=== PATIENT | female | born 1990 | race Caucasian/White ===

== ENCOUNTER 2017-11-24 01:29 | Emergency (ER) | payer OTHER ==
[~2017-11-24] VITALS: Ht 162.6 cm; Wt 117.9 kg
[~2017-11-24 01:29] MED LIST: SPR28 PO
[2017-11-24 01:35] VITALS: BP 145/88; PULSE 91; TEMP 36.9; O2SAT 97; Ht 162.6 cm; Wt 117.9 kg
[2017-11-24] MEDS ORDERED: SEPTRA DS HOME PACK 1 EA VIAL PO ONE (01:45)
[2017-11-24] MEDS ORDERED: NORCO 5/325MG HOME PACK PO ONE (01:45)
[2017-11-24] MEDS ORDERED: CEPHALEXIN 500MG HOME PACK 1 EA BTL PO ONE (01:45)
[2017-11-24] MEDS ORDERED: CEPH500C PO (01:50)
[2017-11-24] MEDS ORDERED: SULF800T23 PO (01:50)
--- NOTE | 2017-11-24 06:45 | EMERGENCY ROOM VISIT NOTE ---
History First contact with patient: 01:37 Chief Complaint: ABDOMINAL PAIN Stated Complaint: OPERATION ON THE , ABDOMINAL PAIN Nursing Triage Summary: pt had a couple masses removed from abd in october, pt c/o increased abd pain and incision is opening up History of Present Illness The patient is a 26 year old female who presents to the Emergency Room with complaints of some increasing pain and drainage from a surgical wound in her lower abdomen. The patient states that she has a lipoma removed at this facility roughly 12 days ago. The patient has been doing very well postoperatively. She has a follow-up appointment in 2 days with her surgeon regarding this. She noticed earlier today that she had some mild redness as well as some drainage from 1 of her wounds. The patient has not had fever or chills. She has been eating, drinking, and using the bathroom as normal. The patient is concerned about infection as she did have a previous abdominal surgery result in a periumbilical abscess. She rates her current discomfort a 2 /10. Review of Systems More than 10 systems were reviewed and otherwise negative with the exception of history of present illness. Past Medical/Surgical History Medical Problems: (1) section (2) Cholecystectomy (3) CHOLELITH W CHOLECYS NEC (4) Repair of umbilical hernia (5) Umbilical hernia Family History Cancer Heart disease Hypertension Social History Smoking Status: Current Every Day Smoker Alcohol Use: occasionally Drug Use: none Marital Status: Housing Status: lives alone Occupation Status: employed Current/Historical Medications Scheduled Cephalexin Monohydrate (Keflex), 500 MG PO TID Ethinyl Estrad/Norgestimate (Sprintec 28), 1 TAB PO QAM Sulfa/Trimethoprim (Bactrim Ds 800MG/160MG), 1 TAB PO BID Physical Exam Vital Signs Date Time Temp Pulse Resp B/P (MAP) Pulse Ox O2 Delivery O2 Flow Rate FiO2 18 01:35 36.9 91 18 145/88 97 Room Air Physical Exam VITALS: Vitals are noted on the nurse's note and reviewed by myself. Vital signs stable. GENERAL: Well-developed, well-nourished, white female, who is in no acute distress and resting comfortably. Patient is cooperative with the examination. HEAD: Normocephalic atraumatic. HEART: Regular rate and rhythm without murmurs gallops or rubs. LUNGS: Clear to auscultation bilaterally without wheezes, rales or rhonchi. No retractions or accessory muscle use. ABDOMEN: Positive normal bowel sounds x 4. Soft, nontender, without masses or organomegaly. There is a horizontal surgical incision underneath the pannus of the mid abdomen in the lower belly. This does have several intact sutures. The right side of the incision appears with marginal healing. The mid aspect of the incision may be folding in on itself, and I have concern for the underlying healing. The left side is with some mild warmth and a slight amount of erythema that may represent an early cellulitis. There is no palpable abscess or drainage that I am able to culture. Palpation of this area does cause tenderness to the patient. MUSCULOSKELETAL: No muscle atrophy, erythema, or edema noted. Full range of motion in all extremities. Medical Decision & Procedures Medications Administered Medications (Trade) Dose Ordered Sig/Myrtle Route Start Time Stop Time Status Last Admin Dose Admin Trimethoprim/ Sulfamethoxazole (Sulfameth/ Trimeth Ds 800/ 160MG Home Pack) 1 homepack UD ONCE PO 11/24/17 01:45 11/24/17 01:46 DC 11/24/17 01:45 1 HOMEPACK Cephalexin Monohydrate (Keflex 500MG Home Pack) 1 homepack NOW ONCE PO 11/24/17 01:45 11/24/17 01:46 DC 11/24/17 01:45 1 HOMEPACK Acetaminophen/ Hydrocodone Bitart ([place] 5/325mg Home Pack) 1 homepack UD ONCE PO 11/24/17 01:45 11/24/17 01:46 DC 11/24/17 01:45 1 HOMEPACK ED Course Physical exam and history were performed. Nursing notes, EMR, and Medication List were personally reviewed. Patient appears to have had a surgical procedure performed about 2 weeks at this facility. She has a horizontal surgical wound that is sutured probably. This is in various stages of healing, however I have concerned for a possible early cellulitis on the left side of the laceration. Patient does not appear toxic and I am not able to express any drainage or discharge. I discussed options of care with the patient, and utilizing shared decision making, we elected to start antibiotics. The patient will be started on Bactrim and Keflex , and will need to follow with her surgeon in 2 days as scheduled. The patient was asked to monitor for worsening or evolving symptoms. If this was to occur she was asked to return to the ER. The patient was pleased with this plan and voiced understanding. She rated her discomfort a 1/10 at the time of departure. The chart was completed utilizing [employer] Speech Voice Recognition Software. Grammatical errors, random word insertions, pronoun errors, and incomplete sentences are an occasional consequence of this system due to software limitations, ambient noise, and hardware issues. Any formal questions or concerns about the content, text, or information contained within the body of this dictation should be directly addressed to the provider for clarification. . Medical Decision Differential diagnosis: Etiologies such as cellulitis, abscess, MRSA infection, DVT, necrotizing fasciitis, dermatitis, drug eruption, as well as others were entertained.. Impression Primary Impression: Abdominal wall cellulitis Departure Information Dispostion Home / Self-Care Condition GOOD Prescriptions Cephalexin Monohydrate (Keflex) 500 Mg Cap 500 MG PO TID for 6 Days, #18 CAP Prov: Rafael Wolfe PA-C 11/24/17 Sulfa/Trimethoprim (Bactrim Ds 800MG/160MG) Tab 1 TAB PO BID for 6 Days, #12 TAB Prov: Rafael Wolfe PA-C 11/24/17 Forms HOME CARE DOCUMENTATION FORM, IMPORTANT VISIT INFORMATION Patient Instructions [facility] Additional Instructions You were seen and evaluated today on an emergency basis only. This is not a substitute for, or an effort to provide, complete comprehensive medical care. It is not possible to recognize and treat all injuries or illnesses in a single emergency department visit. For this reason it is recommended that you followup with your surgeon on Sunday as scheduled. Trimethoprim-Sulfamethoxazole(Bactrim DS): Take one pill twice daily for 7 total days for your skin infection. All antibiotics can cause diarrhea. If this occurs and you feel worse or it does not resolve in 1-2 days follow up with your doctor or return to the Emergency Department as this could be signs of serious underlying problems. Any medication can cause an allergic reaction, stop the pills immediately and return to the ER for rash, hives, breathing difficulties, or swelling. Cephalexin(Keflex) 500mg: Take one pill 3 times daily for 7 total days for your skin infection. All antibiotics can cause diarrhea. If this occurs and you feel worse or it does not resolve in 1-2 days follow up with your doctor or return to the Emergency Department as this could be signs of serious underlying problems. Any medication can cause an allergic reaction, stop the pills immediately and return to the ER for rash, hives, breathing difficulties, or swelling. [place] (hydrocodone/acetaminophen) 5/325 mg: Take ONE pill by mouth every 6 hours as needed for worsening breakthrough pain. Do not drink or drive on [place]. This medication will likely make you tired. Do not take [place] and Tylenol at the same time as both contain acetaminophen. [place] may cause constipation. You may wish to take an [id number] stool softener like Colace if this occurs. You are welcome to return to the emergency department anytime with new, worsening, or concerning symptoms.
== END 2017-11-24 02:02 | disposition home or self-care (01) ==
LOC: C.EDB 01:31 → C.EDA 02:02
DX: L03.311 Cellulitis of abdominal wall (principal); Z98.890 Other specified postprocedural states; Z90.49 Acquired absence of other specified parts of digestive tract; Z80.9 Family history of malignant neoplasm, unspecified; Z82.49 Family history of ischemic heart disease and other diseases of the circulatory system; F17.210 Nicotine dependence, cigarettes, uncomplicated; Z79.3 Long term (current) use of hormonal contraceptives

== ENCOUNTER 2017-11-30 21:13 | Observation (INO) | payer OTHER ==
[~2017-11-30] VITALS: Ht 162.6 cm; Wt 114.9 kg
[~2017-11-30 21:13] MED LIST changes: +CEPH500C PO; +SULF800T23 PO
[2017-11-30] MEDS ORDERED: CEFTRIAXONE SOD INJ 1 GM ADDVIAL IV STA (21:30)
[2017-11-30] MEDS ORDERED: SODIUM CHLORIDE 0.9% 1000ML 1,000 ML IV STA (21:33)
[2017-11-30] MEDS ORDERED: KETOROLAC TROMETHAMINE 30 MG/ML VIAL IV STA (21:47)
[2017-11-30 21:54] LABS: BASO % 0.3 %; BASO ABS # 0.04 K/uL (0-0.2); EOS ABS # 0.13 K/uL (0-0.5); HEMATOCRIT 39.4 % (37-47); HEMOGLOBIN 13.8 g/dL (12.0-16.0); IG# 0.02 K/uL (0.00-0.02); LYMPH % 28.5 %; LYMPH ABS # 3.69 K/uL (1.2-3.4); MEAN CORPUSCULAR HEMOGLOBIN 30.1 pg (25-34); MEAN PLATELET VOLUME 9.4 fL (7.4-10.4); MONO % 7.2 %; MONO ABS # 0.93 K/uL (0.11-0.59); NEUT % 62.8 %; NEUT ABS # 8.12 K/uL (1.4-6.5); PLATELET COUNT 246 K/uL (130-400); RED CELL DISTRIBUTION WIDTH CV 13.4 % (11.5-14.5); RED CELL DISTRIBUTION WIDTH SD 42.3 fL (36.4-46.3); WHITE BLOOD COUNT 12.93 K/uL (4.8-10.8)
[2017-11-30 22:10] LABS: CALCIUM 9.1 mg/dl (8.5-10.1); CREATININE 0.86 mg/dl (0.60-1.20); POTASSIUM 3.9 mmol/L (3.5-5.1)
--- NOTE | 2017-11-30 22:31 | DIAGNOSTIC IMAGING REPORT ---
LIMITED ABDOMINAL ULTRASOUND HISTORY: Lower abdominal swelling/redness, recent lipoma excision, ? infx. COMPARISON: CT of the abdomen and pelvis September 26, 2017. TECHNIQUE: Sonography of the lower anterior abdominal wall at surgical site was performed. FINDINGS: Note is made of a complex 8 x 5.3 x 6.9 cm collection within the deep subcutaneous tissues of the left lower abdominal wall, just to left of midline and just to the left of the surgical incision. This has a spongiform appearance. This contains no color flow. No additional fluid collections are identified. IMPRESSION: Complex 8 x 5.3 x 6.9 cm fluid collection within the deep subcutaneous tissues of the left lower abdominal wall, just to the left of midline and the incision. The appearance favors a resolving hematoma. However, an abscess could appear similar. Electronically signed by: Milton Zavala M.D. 11/30/2017 10:29 PM Dictated Date/Time: 11/30/2017 10:25 PM
[2017-11-30] MEDS ORDERED: OPTIRAY 320 IV PRN (22:45)
[2017-12-01] VITALS (7 sets, daily range): BP systolic 109–129; BP diastolic 72–83; PULSE 59–75; TEMP 36.6–36.8; O2SAT 93–98; Ht 162.6 cm; Wt 114.9 kg
[2017-12-01] MEDS ORDERED: LIDOCAINE HCL 1% 20 ML VIAL ONE (00:43)
[2017-12-01] MEDS ORDERED: BUPIVACAINE 0.5 % 5 MG/1 ML PF 10ML VIAL ONE (00:43)
--- NOTE | 2017-12-01 00:48 | EMERGENCY ROOM VISIT NOTE ---
History First contact with patient: 21:22 Chief Complaint: ABDOMINAL PAIN Stated Complaint: MASS ON INCISION SITE, POST OP 11/12 Nursing Triage Summary: PT had nodules removed from abd on November 12. PT has open incision to pubic area, draining clear/pink fluid. PT has surgical incision to LLQ of abd, healing well , but PT has hard bumps noted to palpation. area is swollen also. PT has no fever/chills, does have pain states "I noticed this am there were bumps and it has been swelling up all day long" History of Present Illness The patient is a 26 year old female who presents to the Emergency Room with complaints of pain and swelling to the lower abdomen after having a mass removed a few weeks ago by Dr. Mcginnis. She describes the pain as burning, ranging in severity 2 out of 10 to the lower abdomen. It does not radiate. Nothing makes it better or worse. She is currently on antibiotics of Keflex and Bactrim. Patient was seen postop a few days ago by Dr. Mcginnis and everything was going well. She states the pain and swelling that started yesterday. She states is slightly red and tender. Patient denies fevers, nausea, vomiting, diarrhea, back pain, urinary symptoms, flulike illness. Review of Systems An 10 system review of systems was completed with positives and pertinent negatives listed in the HPI. Past Medical/Surgical History Medical Problems: (1) section (2) Cholecystectomy (3) CHOLELITH W CHOLECYS NEC (4) Repair of umbilical hernia (5) Umbilical hernia Family History Cancer Heart disease Hypertension Social History Smoking Status: Never Smoker Alcohol Use: occasionally Drug Use: none Marital Status: Housing Status: lives alone Occupation Status: employed Current/Historical Medications Scheduled Ethinyl Estrad/Norgestimate (Sprintec 28), 1 TAB PO QAM Physical Exam Vital Signs Date Time Temp Pulse Resp B/P (MAP) Pulse Ox O2 Delivery O2 Flow Rate FiO2 11/30/17 22:11 94 18 137/88 98 Room Air 11/30/17 21:16 36.9 110 20 167/132 96 Room Air Physical Exam VITALS: Vitals are noted on the nurse's note and reviewed by myself. Vital signs hypertensive. GENERAL: Pleasant female, in no acute distress, nondiaphoretic, well-developed well-nourished. SKIN: Left lower abdominal region slightly erythematous with palpable mass 8 x 6 cm that is tender to palpation and slightly warm. The rest of the skin was without rashes, erythema, edema, or bruising. There is no tenting of the skin. Capillary reflex less than 2 seconds. HEAD: Normocephalic atraumatic. EARS: External auditory canals clear, tympanic membranes pearly kendrick without erythema or effusion bilaterally. EYES: Pupils equal round and reactive to light and accommodation. Conjunctivae without injection, sclerae without icterus. Extraocular movements intact. NOSE: Patent, turbinates without inflammation or discharge. MOUTH: Mucous membranes moist. Pharynx without erythema or exudate. Uvula midline. Airway patent. Tongue does not deviate. NECK: Supple without nuchal rigidity. No lymphadenopathy. No thyromegaly. Cervical spine is nontender. No JVD. HEART: Regular rate and rhythm without murmurs gallops or rubs. LUNGS: Clear to auscultation bilaterally without wheezes, rales or rhonchi. No retractions or accessory muscle use. ABDOMEN: Positive bowel sounds x 4. Normal tympanic percussion. Soft, Left lower abdominal region slightly erythematous with palpable mass 8 x 6 cm that is tender to palpation and slightly warm, lower pannus region with 3 cm x 2 cm healing wound without surrounding erythema or drainage. The abdomen is without organomegaly. Sewell sign negative. No guarding or rebound tenderness. No CVA tenderness MUSCULOSKELETAL: No muscle atrophy, erythema, or edema noted. NEURO: Patient was alert and oriented to person place and time. Normal sensation to light and sharp touch. No focal neurological deficits. Medical Decision & Procedures Laboratory Results 11/30/17 21:40 Red Blood Count 4.58, Mean Corpuscular Volume 86.0, Mean Corpuscular Hemoglobin 30.1, Mean Corpuscular Hemoglobin Concent 35.0, Mean Platelet Volume 9.4, Neutrophils (%) (Auto) 62.8, Lymphocytes (%) (Auto) 28.5, Monocytes (%) (Auto) 7.2, Eosinophils (%) (Auto) 1.0, Basophils (%) (Auto) 0.3, Neutrophils # (Auto) 8.12, Lymphocytes # (Auto) 3.69, Monocytes # (Auto) 0.93, Eosinophils # (Auto) 0.13, Basophils # (Auto) 0.04 11/30/17 21:40 Test 11/30/17 21:40 White Blood Count 12.93 K/uL (4.8-10.8) Red Blood Count 4.58 M/uL (4.2-5.4) Hemoglobin 13.8 g/dL (12.0-16.0) Hematocrit 39.4 % (37-47) Mean Corpuscular Volume 86.0 fL (80-100) Mean Corpuscular Hemoglobin 30.1 pg (25-34) Mean Corpuscular Hemoglobin Concent 35.0 g/dl (32-36) Platelet Count 246 K/uL (130-400) Mean Platelet Volume 9.4 fL (7.4-10.4) Neutrophils (%) (Auto) 62.8 % Lymphocytes (%) (Auto) 28.5 % Monocytes (%) (Auto) 7.2 % Eosinophils (%) (Auto) 1.0 % Basophils (%) (Auto) 0.3 % Neutrophils # (Auto) 8.12 K/uL (1.4-6.5) Lymphocytes # (Auto) 3.69 K/uL (1.2-3.4) Monocytes # (Auto) 0.93 K/uL (0.11-0.59) Eosinophils # (Auto) 0.13 K/uL (0-0.5) Basophils # (Auto) 0.04 K/uL (0-0.2) RDW Standard Deviation 42.3 fL (36.4-46.3) RDW Coefficient of Variation 13.4 % (11.5-14.5) Immature Granulocyte % (Auto) 0.2 % Immature Granulocyte # (Auto) 0.02 K/uL (0.00-0.02) Anion Gap 8.0 mmol/L (3-11) Est Creatinine Clear Calc Drug Dose 123.1 ml/min Estimated GFR () 106.6 Estimated GFR (Non- 91.9 BUN/Creatinine Ratio 20.3 (10-20) Calcium Level 9.1 mg/dl (8.5-10.1) Human Chorionic Gonadotropin, Qual NEG (NEG) Medications Administered Medications (Trade) Dose Ordered Sig/Myrtle Route Start Time Stop Time Status Last Admin Dose Admin Ceftriaxone Sodium (Rocephin Inj) 1 gm NOW STAT IV 11/30/17 21:30 11/30/17 21:32 DC 11/30/17 21:52 1 GM Sodium Chloride 1,000 ml @ 999 mls/hr Q1H1M STAT IV 11/30/17 21:33 11/30/17 22:33 DC 11/30/17 21:52 999 MLS/HR Ketorolac Tromethamine (Toradol Inj) 10 mg NOW STAT IV 11/30/17 21:47 11/30/17 21:48 DC 11/30/17 22:11 10 MG ED Course Prior records/ancillary studies reviewed. Triage Nursing notes reviewed. Additional history obtained from family The patient's history was concerning for abdominal pain and mass status post surgery. Differential diagnosis: Etiologies such as seroma, postsurgical infection, abscess, appendicitis, diverticulitis, PUD, biliary pathology, UTI, pancreatitis, obstruction, mesenteric ischemia, aortic pathology, infections, inflammatory bowel disease, renal colic, as well as others were entertained. Physical examination findings: As above. ER treatment provided: Rocephin, IV fluids, Toradol On reassessment the patient felt better. Diagnostics interpreted by me: The labs revealed leukocytosis. Negative hCG. Negative urine Imaging studies: LIMITED ABDOMINAL ULTRASOUND HISTORY: Lower abdominal swelling/redness, recent lipoma excision, ? infx. COMPARISON: CT of the abdomen and pelvis September 26, 2017. TECHNIQUE: Sonography of the lower anterior abdominal wall at surgical site was performed. FINDINGS: Note is made of a complex 8 x 5.3 x 6.9 cm collection within the deep subcutaneous tissues of the left lower abdominal wall, just to left of midline and just to the left of the surgical incision. This has a spongiform appearance. This contains no color flow. No additional fluid collections are identified. IMPRESSION: Complex 8 x 5.3 x 6.9 cm fluid collection within the deep subcutaneous tissues of the left lower abdominal wall, just to the left of midline and the incision. The appearance favors a resolving hematoma. However, an abscess could appear similar. Electronically signed by: Milton Zavala M.D. CT ABDOMEN & PELVIS With Contrast: Comparison 09/26/17 Findings: 8 cm x 8.6 cm soft tissue collection in the anterior wall of the abdomen below the umbilicus. This is predominantly fluid density. Skin thickening noted overlying the surface. No gas is noted within the soft tissues. This may represent a seroma. This postural of the abscess collection cannot be excluded although no gas is demonstrated. Stable appearance to bilateral renal cysts. No change in appearance of the liver spleen. Stable appearance to small nodule in the left rectus sheath. The appendix is unremarkable as is the rest of the GI tract. Impression: subcutaneous collection midline lower abdominal wall 8 cm in size.. There is some skin thickening. This may represent a seroma. Potential for abscess collection is not excluded. No gas noted within the soft tissues. Radiologist: Vasquez Nava MD Consultation: A consultation was placed with The surgeon, Dr. Mcginnis and reviewed the ultrasound results and request CT. This was ordered a reconsulted Dr. Mcginnis. The case was discussed and diagnostics were reviewed. The patient was evaluated in the ER for further treatment. He will take the patient to the OR for further evaluation and treatment. Please see his note. Exam and history seem consistent with abdominal fluid collection of seroma versus abscess. Patient will be taken to the OR. She was given antibiotics. She does have a leukocytosis. She felt much better to being medicated as above. She will be admitted to the surgical service. Patient is agreeable to treatment plan. By the evaluation outlined above emergent etiologies such as appendicitis, diverticulitis, PUD, biliary pathology, UTI, pancreatitis, obstruction, mesenteric ischemia, aortic pathology, inflammatory bowel disease, renal colic, as well as others were deemed relatively unlikely. The pt informed about the findings as listed above. All questions were answered and pleased with the treatment. Case reviewed with my attending The chart was completed utilizing [employer] Speech voice recognition software. Grammatical errors, random word insertions, pronoun errors, and incomplete sentences are an occassional consequence of this system due to software limitations, ambient noise, and hardware issues. Any formal questions or concerns about the content, text, or information contained within the body of this dictation should be directly addressed to the physician mail handler assistant for clarification. Medical Decision As above Medication Reconcilliation Current Medication List: was personally reviewed by me Blood Pressure Screening Patient's blood pressure: Normal blood pressure Impression Primary Impression: Abdominal wall mass Additional Impression: Postoperative complication Departure Information Dispostion Being Evaluated By Surgeon Condition GOOD Referrals Alex Viera M.D. (PCP) Patient Instructions [facility] Problem Qualifiers
--- NOTE | 2017-12-01 01:01 | Surgery Consultation ---
Consultation Date of Consultation: Dec 01, 2017. 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 Past Medical/Surgical History Medical Problems: (1) Abdominal cyst Status: Acute (2) Abdominal pain Status: Acute (3) Abdominal wall cellulitis Status: Acute (4) Laceration of lower extremity Status: Acute (5) Periumbilical abdominal pain Status: Acute Family History Cancer Heart disease Hypertension Social History Smoking Status: Never Smoker Smokeless Tobacco Use: No Alcohol Use: occasionally Drug Use: none Marital Status: Housing Status: lives alone Occupation Status: employed Allergies Coded Allergies: No Known Allergies (Verified , 11/30/17) Home Medications Scheduled Ethinyl Estrad/Norgestimate (Sprintec 28), 1 TAB PO QAM Current Inpatient Medications Current Inpatient Medications Medications (Trade) Dose Ordered Sig/Myrtle Route Start Time Stop Time Status Last Admin Dose Admin Ioversol (Optiray 320) 100 ml UD PRN IV 11/30/17 22:45 12/04/17 22:44 Review of Systems Constitutional: No fever, No chills, No sweats, No weight loss, No weakness, No fatigue, No problem reported Eyes: No worsening of vision, No eye pain, No redness, No discharge, No diplopia, No problem reported ENT: No hearing loss, No unusual epistaxis, No nasal symptoms, No sore throat, No tinnitus, No dental problems, No trouble swallowing, No problem reported Respiratory: No cough, No sputum, No wheezing, No shortness of breath, No dyspnea on exertion, No dyspnea at rest, No hemoptysis, No problem reported Cardiovascular: No chest pain, No orthopnea, No PND, No edema, No claudication , No palpitations, No problem reported Abdomen: + pain Musculoskeletal: No joint pain, No muscle pain, No swelling, No calf pain, No problem reported Genitourinary - Female: No dysuria, No urinary frequency, No urinary urgency, No urinary incontinence, No urinary retention, No hematuria, No dysmenorrhea, No menorrhagia, No metrorrhagia, No rash, No vaginal bleeding, No vaginal discharge, No vaginal itching, No vulvodynia, No , No problem reported Neurologic: No memory loss, No paralysis, No weakness, No numbness/tingling, No vertigo, No balance problems, No problem reported Psychiatric: No depression symptoms, No anhedonism, No anxiety, No insomnia, No substance abuse, No problem reported Endocrine: No fatigue, No excessive thirst, No excessive urination, No problem reported Hematologic / Lymphatic: No abnormal bleeding/bruising, No clotting problems, No swollen lymph nodes, No night sweats, No problem reported Physical Exam Date Time Temp Pulse Resp B/P (MAP) Pulse Ox O2 Delivery O2 Flow Rate FiO2 12/01/17 00:18 82 18 130/67 98 Room Air 11/30/17 22:11 94 18 137/88 98 Room Air 11/30/17 21:16 36.9 110 20 167/132 96 Room Air General Appearance: WD/WN, no apparent distress Head: normocephalic Eyes: normal inspection ENT: normal ENT inspection Neck: supple, no JVD Cardiovascular: regular rate, rhythm, no edema, no gallop, no JVD Abdomen/GI: normal bowel sounds, soft, no organomegaly, no pulsatile mass, + tenderness (at anterior abdominal wall on incision site, some redness around incision site, with bulging, no drainage, ) Extremities/Musculoskelatal: normal inspection, no calf tenderness, normal capillary refill Neurologic/Psych: alert, normal mood/affect, oriented x 3 Skin: normal color, warm/dry, no rash Laboratory Results Last 24 Hours Test 11/30/17 21:40 White Blood Count 12.93 K/uL Red Blood Count 4.58 M/uL Hemoglobin 13.8 g/dL Hematocrit 39.4 % Mean Corpuscular Volume 86.0 fL Mean Corpuscular Hemoglobin 30.1 pg Mean Corpuscular Hemoglobin Concent 35.0 g/dl Platelet Count 246 K/uL Mean Platelet Volume 9.4 fL Neutrophils (%) (Auto) 62.8 % Lymphocytes (%) (Auto) 28.5 % Monocytes (%) (Auto) 7.2 % Eosinophils (%) (Auto) 1.0 % Basophils (%) (Auto) 0.3 % Neutrophils # (Auto) 8.12 K/uL Lymphocytes # (Auto) 3.69 K/uL Monocytes # (Auto) 0.93 K/uL Eosinophils # (Auto) 0.13 K/uL Basophils # (Auto) 0.04 K/uL RDW Standard Deviation 42.3 fL RDW Coefficient of Variation 13.4 % Immature Granulocyte % (Auto) 0.2 % Immature Granulocyte # (Auto) 0.02 K/uL Sodium Level 137 mmol/L Potassium Level 3.9 mmol/L Chloride Level 108 mmol/L Carbon Dioxide Level 21 mmol/L Anion Gap 8.0 mmol/L Blood Urea Nitrogen 18 mg/dl Creatinine 0.86 mg/dl Est Creatinine Clear Calc Drug Dose 123.1 ml/min Estimated GFR () 106.6 Estimated GFR (Non- 91.9 BUN/Creatinine Ratio 20.3 Random Glucose 83 mg/dl Calcium Level 9.1 mg/dl Human Chorionic Gonadotropin, Qual NEG Assessment & Plan U/S study(11/30/2017)-FINDINGS: Note is made of a complex 8 x 5.3 x 6.9 cm collection within the deep subcutaneous tissues of the left lower abdominal wall, just to left of midline and just to the left of the surgical incision. This has a spongiform appearance. This contains no color flow. No additional fluid collections are identified. IMPRESSION: Complex 8 x 5.3 x 6.9 cm fluid collection within the deep subcutaneous tissues of the left lower abdominal wall, just to the left of midline and the incision. The appearance favors a resolving hematoma. However, an abscess could appear similar. CT scan( 11/30/2017)- fluid collection on anterior abdominal wall, possible seroma/abscess, Assessment: pt is a 26 year old female who is a S/P resection a mass on anterior abdominal wall 2.5 weeks ago, now pt presents to Er with abdominal pain with incision bulging, IMP: abdominal wall seroma /abscess, base on pt is symptomatic and WBC high 12.9, I recommend to do I/D seroma / abscess on anterior abdominal wall, or watching, but pt wants to I/D surgery, D/ W benefits, risks and alternatives of the surgery, the risks - infection, bleeding, sepsis, pt understood, she agrees with the surgery, I answered all questions,
--- NOTE | 2017-12-01 01:02 | History & Physical Bridge Note ---
H&P Re-Evaluation Bridge Note: I have examined the patient, reviewed the History & Physical and in the interval since the performance of the History & Physical I have noted the following changes of clinical significance: No changes noted
[2017-12-01] MEDS ORDERED: FENTANYL CITRATE INJ 50 MCG/1 ML 2 ML VIAL IV PRN (01:15)
[2017-12-01] MEDS ORDERED: EpHEDrine SULFATE INJ 50 MG/ML AMP IV PRN (01:15)
[2017-12-01] MEDS ORDERED: ACETAMINOPHEN 325 MG TAB PO PRN (01:15)
[2017-12-01] MEDS ORDERED: ATROPINE SULFATE 0.1 MG/ML 5ML SYR IV PRN (01:15)
[2017-12-01] MEDS ORDERED: LABETALOL HCL IV 5 MG/ML 20ML IV PRN (01:15)
[2017-12-01] MEDS ORDERED: MEPERIDINE HCL 25 MG/ML CARP IV PRN (01:15)
[2017-12-01] MEDS ORDERED: ONDANSETRON INJ 2 MG/ML 2 ML VIAL IV PRN ×2 (01:15)
[2017-12-01] MEDS ORDERED: HYDROmorphone INJ 1 MG/ML SYR IV PRN ×2 (01:15)
[2017-12-01] MEDS ORDERED: FENTANYL CITRATE INJ 50 MCG/1 ML 2 ML VIAL ONE (01:21)
[2017-12-01] MEDS ORDERED: MIDAZOLAM HCL 1 MG/ML 2ML VIAL ONE (01:21)
[2017-12-01] MEDS ORDERED: CEFAZOLIN SOD 2000MG/15 ML IV PUSH IV STA (01:25)
[2017-12-01] MEDS ORDERED: BACITRACIN OINT 15 GM TUBE ONE (01:36)
--- NOTE | 2017-12-01 01:45 | [facility] Post Operative Brief Note ---
Immediate Operative Summary Operative Date Dec 01, 2017. Pre-Operative Diagnosis Abdomenal Wall seroma/abscess Post-Operative Diagnosis Abdomenal Wall seroma Procedure(s) Performed Incision and Drainage of Abdominal Wall seroma Surgeon Dr Mcginnis Donor Services Specialist Surgeon(s) None Estimated Blood Loss 5cc Findings Consistent with Post-Op Diagnosis seroma Fluids (cc crystalloids) 400ml Specimens 1: Abdominal Wall Fluid Collection Drains packing the wound Anesthesia Type MAC Complication(s) none Disposition Accompanied Pt To Recover: yes Disposition: Recovery Room / PACU
[2017-12-01] MEDS ORDERED: LIDOCAINE HCL 2% 2 ML VIAL (20MG/ML) ONE (01:48)
[2017-12-01] MEDS ORDERED: PROPOFOL IV EMULSION 10 MG/ML 20 ML VIAL ONE (01:48)
[2017-12-01] MEDS ORDERED: CEFAZOLIN SOD 1 GM VIAL ONE (01:48)
[2017-12-01] MEDS ORDERED: D5W AND 1/2NSS + 20MEQ KCL 1,000 ML IV SCH (02:45)
[2017-12-01] MEDS: OXYCODONE/ACETAMINOPHEN 5-325 TAB PO PRN ×2 (02:49→08:10)
[2017-12-01] MEDS ORDERED: PIPERACILL/TAZOBAC IV 4.5 GM in D5W 100 ML IV ONE (03:00)
[2017-12-01 03:11] LABS: BASO % 0.2 %; BASO ABS # 0.02 K/uL (0-0.2); EOS % 1.2 %; EOS ABS # 0.15 K/uL (0-0.5); HEMATOCRIT 38.6 % (37-47); IG# 0.03 K/uL (0.00-0.02); LYMPH % 33.3 %; LYMPH ABS # 4.14 K/uL (1.2-3.4); MEAN CELL VOLUME 86.2 fL (80-100); MEAN CORPUSCULAR HGB CONC 33.7 g/dl (32-36); MEAN PLATELET VOLUME 9.3 fL (7.4-10.4); MONO % 6.2 %; MONO ABS # 0.77 K/uL (0.11-0.59); NEUT % 58.9 %; NEUT ABS # 7.31 K/uL (1.4-6.5); PLATELET COUNT 215 K/uL (130-400); RED CELL DISTRIBUTION WIDTH CV 13.4 % (11.5-14.5); RED CELL DISTRIBUTION WIDTH SD 42.2 fL (36.4-46.3); WHITE BLOOD COUNT 12.42 K/uL (4.8-10.8)
[2017-12-01] MEDS ORDERED: IV FLUIDS COMPLETED PRN (03:30)
--- NOTE | 2017-12-01 05:46 | OPERATIVE REPORT ---
DATE OF OPERATION: 12/01/2017 PREOPERATIVE DIAGNOSIS: Abdominal wall seroma or abscess. POSTOPERATIVE DIAGNOSIS: Abdominal wall seroma. PROCEDURE: I&D of abdominal wall seroma. SURGEON: Arcadio Mcginnis MD ANESTHESIA: Conscious sedation plus local. ESTIMATED BLOOD LOSS: About 5 mL. FINDINGS: Abdominal wall seroma. Wound culture sent. COMPLICATIONS: None. INDICATIONS FOR THE PROCEDURE: This as a 26-year-old female who presented to the ED with 2-day history of abdominal wall pain and patient had resection of abdominal wall mass about 2-1/2 weeks ago and now patient had ultrasound and CT scan diagnosis of abdominal wall seroma or abscess. We decided to take the patient to the OR, do I&D of abdominal wall seroma or abscess. I did talk to the patient about the benefits, risks, and alternate procedures. I indicated the risks may include but not limited such as bleeding, infection, chronic wound, scar, sepsis. The patient understood. She signed informed consent and she agreed to proceed with the procedure. I answered all questions. DETAILS OF PROCEDURE: We brought the patient to the OR, put the patient in the supine position. The patient received SCD on bilateral legs to prevent DVT. Also, the patient received 2 grams Ancef IV for prophylactic antibiotic. The patient received conscious sedation by anesthesiology. The abdomen was prepped and draped in routine sterile fashion. After time-out, I injected 1% lidocaine mixed with 0.5% Marcaine around the low incision site below umbilical. I then made about a 1.5 cm incision and on dissection of subcutaneous layer, there was clear fluid that came out. We did send wound culture. Then we suctioned and all fluid came out and we packed with 0.5-inch Kerlix with bacitracin. Hemostasis was obtained. Then we put the dressing on. The patient tolerated the procedure well. All the instrument, needle, and sponge count were correct x2 at the end of case. Patient transferred to recovery room in stable condition. Wound culture sent. I attest to the content of the Intraoperative Record and any orders documented therein. Any exceptions are noted below. MTDD
[2017-12-01] MEDS ORDERED: PIPERACILL/TAZOBAC IV 3.375 GM in DEXTROSE 5% 100ML 100 ML IV SCH (06:00)
--- NOTE | 2017-12-01 07:13 | DIAGNOSTIC IMAGING REPORT ---
CT SCAN OF THE ABDOMEN AND PELVIS WITH IV CONTRAST CLINICAL HISTORY: Lower abdominal pain and swelling. COMPARISON STUDY: Abdominal CT scans dated 09/26/2017 and 07/25/2012. TECHNIQUE: Following the IV administration of 113 cc of Optiray 320, CT scan of the abdomen and pelvis is performed from the lung bases to the proximal femora. Images are reviewed in the axial, sagittal, and coronal planes. IV contrast was administered without complication. A dose lowering technique was utilized adhering to the principles of ALARA. CT DOSE: 1370.69 mGy.cm FINDINGS: Lung bases: The heart is normal in size and without pericardial effusion. The lung bases are clear. Liver: The contrast-enhanced liver is enlarged, measuring 19.8 cm in length. The liver is otherwise normal in contour and attenuation. There is mild central intrahepatic biliary ductal dilatation. The hepatic veins and portal veins are patent. Gallbladder: Surgically absent noting clips in the gallbladder fossa. Spleen: Normal in size and attenuation. Pancreas: Unremarkable. Adrenal glands: Unremarkable. Kidneys: The contrast enhanced kidneys are normal in size and without hydronephrosis. The kidneys enhance symmetrically. A 1.9 cm cyst is seen in the right lower pole. Findings suggest medullary nephrocalcinosis. Numerous tiny renal calculi are noted. Abdominal vasculature: The abdominal aorta is normal in course and caliber. Bowel: The small bowel and colon are normal in course and caliber. The appendix is well-visualized and normal. Peritoneum: There is no intraperitoneal free air or abdominal ascites. There is the midline surgical scar with evidence of previous umbilical hernia repair. No residual hernia is identified. There is an approximately 8 x 7.5 x 8 cm fluid collection identified within the ventral abdominal pannus below the umbilicus. This is best seen on image #305 and measures water density. This demonstrates thin peripheral enhancement and there is mild overlying dermal thickening. No gas is present within the collection. A 1.8 cm slightly hyperdense nodule is again seen within the left rectus muscle on image #266. Lymphadenopathy: None. Pelvic viscera: The bladder, uterus, and adnexa are normal as visualized. There are numerous small ovarian follicles. Skeletal structures: No lytic or blastic lesions are seen. IMPRESSION: 1. There is an approximately 8 x 7.5 x 8 cm fluid collection identified within the midline infraumbilical abdominal pannus. This is nonspecific, and differential considerations include a seroma, a liquefied hematoma, or possibly abscess. Clinical correlation will be essential. 2. There is unchanged appearance of a 1.8 cm enhancing nodule within the infraumbilical left rectus muscle as compared to previous. Top differential considerations remain a small endometrioma within the abdominal wall or less likely desmoid tumor. 3. Hepatomegaly. 4. Findings suggest medullary nephrocalcinosis. Tiny renal calculi are again noted. 5. Additional findings as above. Electronically signed by: Lam Villalobos M.D. 12/01/2017 7:12 AM Dictated Date/Time: 12/01/2017 7:02 AM
[2017-12-01] MEDS ORDERED: PIPERACILL/TAZOBAC IV 4.5 GM in D5W 100 ML IV SCH (08:00)
--- NOTE | 2017-12-01 08:03 | Anesthesiology Progress Note ---
Anesthesia Post Op Note Date & Time Dec 01, 2017 at 08:03 Vital Signs Pain Intensity: 5.0 Vital Signs Past 12 Hours Date Time Temp Pulse Resp B/P (MAP) Pulse Ox O2 Delivery O2 Flow Rate FiO2 12/01/17 07:08 36.7 65 18 109/77 (88) 93 Room Air 12/01/17 05:25 36.7 59 16 115/75 (88) 98 Room Air 12/01/17 04:25 36.7 75 16 112/75 (87) 96 Room Air 12/01/17 03:25 36.8 74 16 116/72 (87) 98 Room Air 12/01/17 02:54 36.7 62 16 129/76 (93) 97 Room Air 12/01/17 02:25 Room Air 12/01/17 02:25 36.6 16 127/83 98 Room Air 12/01/17 02:25 98 Room Air 12/01/17 02:10 36.5 71 16 126/79 95 Room Air 12/01/17 02:00 72 16 113/71 93 Room Air 12/01/17 01:50 36.2 78 16 114/77 95 Room Air 12/01/17 00:18 82 18 130/67 98 Room Air 11/30/17 22:11 94 18 137/88 98 Room Air 11/30/17 21:16 36.9 110 20 167/132 96 Room Air Notes Mental Status: alert / awake / arousable, participated in evaluation Pt Amnestic to Procedure: Yes Nausea / Vomiting: adequately controlled Pain: adequately controlled Airway Patency, RR, SpO2: stable & adequate BP & HR: stable & adequate Hydration State: stable & adequate Anesthetic Complications: no major complications apparent
--- NOTE | 2017-12-01 09:25 | Surgery Progress Note ---
Surgery Progress Note Date of Service Dec 01, 2017. Subjective Post OP Day: 1 + feeling well pt is doing fine, no fever, less abdominal pain, she tolerated diet, wound culture is pending, Objective Vital Signs: Date Time Temp Pulse Resp B/P (MAP) Pulse Ox O2 Delivery O2 Flow Rate FiO2 12/01/17 08:00 Room Air 12/01/17 07:08 36.7 65 18 109/77 (88) 93 Room Air 12/01/17 05:25 36.7 59 16 115/75 (88) 98 Room Air 12/01/17 04:25 36.7 75 16 112/75 (87) 96 Room Air 12/01/17 03:25 36.8 74 16 116/72 (87) 98 Room Air 12/01/17 02:54 36.7 62 16 129/76 (93) 97 Room Air 12/01/17 02:25 Room Air 12/01/17 02:25 36.6 16 127/83 98 Room Air 12/01/17 02:25 98 Room Air 12/01/17 02:10 36.5 71 16 126/79 95 Room Air 12/01/17 02:00 72 16 113/71 93 Room Air 12/01/17 01:50 36.2 78 16 114/77 95 Room Air 12/01/17 00:18 82 18 130/67 98 Room Air 11/30/17 22:11 94 18 137/88 98 Room Air 11/30/17 21:16 36.9 110 20 167/132 96 Room Air General Appearance: WD/WN, no apparent distress Head: normocephalic Neck: no JVD Respiratory/Chest: chest non-tender, lungs clear Cardiovascular: regular rate, rhythm, no edema, no gallop Abdomen: normal bowel sounds, non tender, non distended, soft Incision(s): clean, dry, intact (packing is intact, the dressing is changed, ) Extremities: normal range of motion, non-tender, normal inspection Laboratory Results: Results Past 24 Hours Test 11/30/17 21:40 12/01/17 02:56 Range/Units White Blood Count 12.93 12.42 4.8-10.8 K/uL Red Blood Count 4.58 4.48 4.2-5.4 M/uL Hemoglobin 13.8 13.0 12.0-16.0 g/dL Hematocrit 39.4 38.6 37-47 % Mean Corpuscular Volume 86.0 86.2 80-100 fL Mean Corpuscular Hemoglobin 30.1 29.0 25-34 pg Mean Corpuscular Hemoglobin Concent 35.0 33.7 32-36 g/dl Platelet Count 246 215 130-400 K/uL Mean Platelet Volume 9.4 9.3 7.4-10.4 fL Neutrophils (%) (Auto) 62.8 58.9 % Lymphocytes (%) (Auto) 28.5 33.3 % Monocytes (%) (Auto) 7.2 6.2 % Eosinophils (%) (Auto) 1.0 1.2 % Basophils (%) (Auto) 0.3 0.2 % Neutrophils # (Auto) 8.12 7.31 1.4-6.5 K/uL Lymphocytes # (Auto) 3.69 4.14 1.2-3.4 K/uL Monocytes # (Auto) 0.93 0.77 0.11-0.59 K/uL Eosinophils # (Auto) 0.13 0.15 0-0.5 K/uL Basophils # (Auto) 0.04 0.02 0-0.2 K/uL RDW Standard Deviation 42.3 42.2 36.4-46.3 fL RDW Coefficient of Variation 13.4 13.4 11.5-14.5 % Immature Granulocyte % (Auto) 0.2 0.2 % Immature Granulocyte # (Auto) 0.02 0.03 0.00-0.02 K/uL Sodium Level 137 136-145 mmol/L Potassium Level 3.9 3.5-5.1 mmol/L Chloride Level 108 98-107 mmol/L Carbon Dioxide Level 21 21-32 mmol/L Anion Gap 8.0 3-11 mmol/L Blood Urea Nitrogen 18 7-18 mg/dl Creatinine 0.86 0.60-1.20 mg/dl Est Creatinine Clear Calc Drug Dose 123.1 ml/min Estimated GFR () 106.6 Estimated GFR (Non- 91.9 BUN/Creatinine Ratio 20.3 10-20 Random Glucose 83 70-99 mg/dl Calcium Level 9.1 8.5-10.1 mg/dl Human Chorionic Gonadotropin, Qual NEG NEG Microbiology Results 12/01/17 Gram Stain - Final, Resulted 12/01/17 Bacterial Culture, Resulted Pending Assessment & Plan F/U S/P I/D abdominal wall seroma, doing better plan, pt wants to go home today. pt will F/U wound care center on Sunday, F/U Dr. gill in 2 weeks,
[2017-12-01] MEDS ORDERED: OXYC-57 PO (09:26)
--- NOTE | 2017-12-01 09:31 | Discharge Instructions ---
Discharge Instructions Date of Service Dec 01, 2017. Admission Reason for Admission: Abdominal Wall Seroma Discharge Discharge Diagnosis / Problem: S/P I/D abdominal wall seroma Discharge Goals Goal(s): Decrease discomfort, Improve function Activity Recommendations Activity Limitations: per Instructions/Follow-up section Lifting Limitations: no more than 25 pounds Exercise/Sports Limitations: rest today May Resume Sexual Activity: after two weeks Shower/Bathe: may shower/bathe in 3 days Driving or Machine Use: resume 3 days after discharge . Instructions / Follow-Up Instructions / Follow-Up she will F/U wound care center on next Sunday12/03/2017, for dressing change, she can take a shower on 12/03/2017, no driving or working while taking pain medicine, follow up bridget Pratt in 2 weeks, , bactrim 800/160 one tab po bid x 10 days, Current Hospital Diet Patient's current hospital diet: Regular Diet Discharge Diet Recommended Diet: Regular Diet Procedures Procedures Performed: Incision and Drainage of Abdominal Wall seroma Pending Studies Studies pending at discharge: no Medical Emergencies . Who to Call and When: Medical Emergencies: If at any time you feel your situation is an emergency, please call 911 immediately. . Non-Emergent Contact Non-Emergency issues call your: Surgeon Call Non-Emergent contact if: you have a fever, temperature is above 100.5, your pain is not controlled, your pain is worsening, wound has increased drainage, wound has increased redness . "Provider Documentation" section prepared by Arcadio Mcginnis. . [place] Drug Monitoring Program Search Results: no issues identified
[2017-12-01] MEDS ORDERED: SULF800T23 PO (09:32)
--- NOTE | 2017-12-01 09:56 | DISCHARGE SUMMARY ---
ADMITTING DIAGNOSIS: Abdominal wall seroma. DISCHARGE DIAGNOSIS: Same. OPERATION: Incision and drainage, abdominal wall seroma. SURGEON: Arcadio Mcginnis MD DETAILS OF DISCHARGE SUMMARY: This is a 26-year-old female who presented to the ED with a couple of days history of abdominal pain. Patient had a CT scan and has a diagnosis of abdominal wall seroma. Patient was required to do I and D of abdominal wall seroma. Taken patient to the OR and did I and D of abdominal seroma. Patient tolerated procedure well. Packing the wound. Wound culture sent, culture result is pending. Patient is doing fine overnight. PHYSICAL EXAMINATION: VITAL SIGNS: Temperature is 36.7, the heart rate is 65, respiratory rate 18, blood pressure 109/77, and O2 saturation 93% on room air. GENERAL: Patient is alert, awake, oriented x3. HEENT: With normal limitation. NECK: No JVD. CHEST: Bilateral lung sounds clear. HEART: Normal S1 and S2. No murmur. ABDOMEN: Soft, no tenderness. Dressing changed. The wound has no significant drainage, no redness. Packing intact. EXTREMITIES: No edema. NEUROLOGIC: Intact. DISCHARGE INSTRUCTIONS: The patient wanted to go home. I gave patient postop care instructions. I instructed patient to follow up with the wound care. Patient has the phone number to hospital nurse apartment leasing manager, will call the wound care center to make appointment for Sunday to change the dressing. Will follow up patient in 2 weeks. Also gave patient Bactrim 800/160 one tablet p.o. b.i.d. for 10 days.
== END 2017-12-01 11:20 | disposition home or self-care (01) ==
LOC: C.EDB 21:14 → C.3E 12-01 01:08 → ENRESERV 12-01 02:01
PROVIDERS: ADMIT Surgery; ATTEND Surgery
DX: L76.34 Postprocedural seroma of skin and subcutaneous tissue following other procedure (principal); L02.211 Cutaneous abscess of abdominal wall; E66.9 Obesity, unspecified; Z68.41 Body mass index [BMI] 40.0-44.9, adult; Z90.49 Acquired absence of other specified parts of digestive tract

== ENCOUNTER → 2017-12-04 | Outpatient (CLI) | payer OTHER ==
[~2017-12-04] MED LIST changes: -CEPH500C PO; +OPTIRAY 320 IV PRN; +OXYC-57 PO
--- NOTE | 2017-12-04 14:15 | DIAGNOSTIC IMAGING REPORT ---
CT OF THE ABDOMEN AND PELVIS WITH CONTRAST CLINICAL HISTORY: Nonhealing wound. Evaluate for abscess status post incision and drainage of abdominal small seroma on December 01, 2017. COMPARISON STUDY: CT of the abdomen and pelvis November 30, 2017. TECHNIQUE: Following IV administration of 93 mL of Optiray-320, axial images of the abdomen and pelvis were obtained from the lung bases to the proximal femurs. Images were reviewed in the axial, sagittal, and coronal planes. IV contrast was administered without complication. A dose lowering technique was utilized adhering to the principles of ALARA. Oral contrast was administered. CT DOSE: 1073.80 mGycm FINDINGS: Lung bases are clear. Liver, spleen, adrenal glands and pancreas are normal. There are numerous small bilateral renal calculi. There are no ureteral calculi. There is no hydronephrosis. A 1.8 cm cyst within the lower pole of the right kidney is noted. No ureteral calculi are present. There is no biliary ductal dilatation status post cholecystectomy. There is no evidence for a bowel obstruction. The appendix is normal. The previously described fluid collection within the subcutaneous tissues of the lower abdomen has decreased in size since CT of November 30, 2017 and now contains multiple locules of gas as expected given recent incision and drainage. This collection now measures 4.5 x 3 cm. The amount of fluid has significantly diminished. A small amount of residual fluid is noted. No additional fluid collections are present. A 1.8 cm enhancing nodule within the infraumbilical left rectus sheath is unchanged. No suspicious skeletal lesion is present. Corpus luteal cyst within the right ovary is suspected. IMPRESSION: 1. Significant interval decrease in size of the subcutaneous fluid collection of the inferior abdominal wall since CT of November 30, 2017. Small residual fluid and gas containing collection measuring 4.5 x 3 cm. This favors a seroma or liquefying hematoma. Gas is from recent incision and drainage. An abscess could appear similar although is considered less likely. 2. No change in a 1.8 cm enhancing nodule within the left rectus sheath. This may reflect a small endometrioma or desmoid tumor. Electronically signed by: Milton Zavala M.D. 12/04/2017 2:14 PM Dictated Date/Time: 12/04/2017 1:54 PM
== END | disposition home or self-care (01) ==
LOC: C.CTS 11:21
PROVIDERS: ATTEND Emergency Medicine
DX: T81.89XA Other complications of procedures, not elsewhere classified, initial encounter (principal); Y83.9 Surgical procedure, unspecified as the cause of abnormal reaction of the patient, or of later complication, without mention of misadventure at the time of the procedure; R19.00 Intra-abdominal and pelvic swelling, mass and lump, unspecified site; R22.2 Localized swelling, mass and lump, trunk; L98.8 Other specified disorders of the skin and subcutaneous tissue